=== PATIENT | female | born 1955 | race Caucasian/White ===

== ENCOUNTER 2019-02-16 14:52 | Inpatient (IN) ==
[2019-02-16] MEDS ORDERED: ZOFRAN IV ONE (16:33)
[2019-02-16] MEDS ORDERED: NS 1,000 ML IV ONE ×2 (16:33→16:34)
[2019-02-16] MEDS ORDERED: MORPHINE IV ONE (16:33)
[2019-02-16] MEDS ORDERED: BENADRYL IV ONE (16:34)
[2019-02-16] MEDS ORDERED: REGLAN IV ONE (16:34)
--- NOTE | 2019-02-16 18:02 | PROVIDER DOCUMENTATION ---
This chart was entered by Ly Cloud Scribe, acting as scribe for Zeke Ann MD. HPI-Headache - General Source: patient - History of Present Illness-Headache Headache Location: reports: frontal Quality of Pain: reports: throbbing Severity: reports: moderate Onset/Duration: reports: this afternoon (1200) Timing: reports: still present, improving Any recent trauma/injury?: reports: none Headache severity at the maximum: moderate Headache Exacerbated by:: reports: light Associated Symptoms: reports: nausea, vomiting, other (confusion) Similar Symptoms Previously?: No Recently seen or treated by another doctor?: No <Zeke Ann - Last Filed: 02/16/19 18:25> <Reinaldo Mtz - Last Filed: 02/16/19 22:19> <Nevaeh Rocha - Last Filed: 02/16/19 22:38> - General Chief Complaint: Headache Stated Complaint: headache Time Seen by Provider: 02/16/19 15:56 Allergies/Adverse Reactions: Patient Allergies Allergy/AdvReac Type Severity Reaction Status Date / Time Penicillins Allergy Intermediate HIVES Verified 02/11/18 10:31 Home Medications: Home Medication List Medication Instructions Recorded Confirmed Last Taken Type Duloxetine [Cymbalta] 60 mg PO DAILY 04/25/16 02/16/19 Unknown History Furosemide 60 mg PO PRN PRN 04/25/16 02/16/19 Unknown History Multivitamin [Multi-Vitamin Daily] 1 each PO DAILY 04/25/16 02/16/19 Unknown History Omeprazole [Prilosec] 40 mg PO DAILY 04/25/16 02/16/19 Unknown History ROSUVAstatin [Crestor] 20 mg PO DAILY 04/25/16 02/16/19 Unknown History Trazodone [Desyrel] 100 - 200 mg PO QHS 04/25/16 02/16/19 Unknown History Insulin Glargine [Lantus] 0 units SQ DAILY 08/13/16 02/16/19 Unknown History Ondansetron Odt [Zofran 4 mg Odt] 4 mg PO Q6H PRN PRN #20 tab 02/11/18 02/16/19 Unknown Rx Diltiazem HCl [Diltiazem 24Hr Cd] 120 mg PO QAM 02/16/19 02/16/19 Unknown History Levocetirizine Dihydrochloride 5 mg PO DAILY 02/16/19 02/16/19 Unknown History Pregabalin [Lyrica] 100 mg PO BID 02/16/19 02/16/19 Unknown History - History of Present Illness-Headache Nature of Presenting Problem: Patient is a 63 year old female who presents with headache, nausea, vomiting and confusion. Reports headache started around 1200 today while on the toilet. S tates history of diabetes. (Zeke Ann) Review of Systems - Adult - REVIEW OF SYSTEMS - ADULT Constitutional: reports: no symptoms reported. denies: chills, fever, fatique Eyes: reports: no symptoms reported Ears, Nose, Mouth & Throat: reports: no symptoms reported Cardiovascular: reports: no symptoms reported Respiratory: reports: no symptoms reported Gastrointestinal: reports: see HPI, nausea, vomiting. denies: abdominal pain Genitourinary: reports: no symptoms reported Musculoskeletal: reports: no symptoms reported Integumentary: reports: no symptoms reported Neurological: reports: see HPI, headache/migraines (SOLOMON), other (confusion). denies: dizziness/vertigo, seizure, syncope Psychiatric: reports: no symptoms reported Endocrine: reports: no symptoms reported Hematologic/Lymphatic: reports: no symptoms reported Allergic/Immunologic: reports: no symptoms reported All Other Systems: Reviewed and Negative <Zeke Ann - Last Filed: 02/16/19 18:25> Past History - Adult - PAST MEDICAL HISTORY-ADULT Review of Records: reports: Old Records Reviewed, Nursing Assessment Review, Medications Reviewed, Social history reviewed & non-contributory. Major Childhood Illnesses: reports: denies history Cardiovascular: reports: HTN, hyperlipidemia Respiratory: reports: asthma, other (allergies) Gastrointestinal: reports: GERD Obstetrical/Gynecological: reports: denies history Genitourinary: reports: denies history Musculoskeletal: reports: fibromyalgia Neurological: reports: dementia Psychiatric: reports: bipolar Endocrine/Immune: reports: Diabetes Other Conditions: reports: denies history - PRIOR SURGERIES/PROCEDURES Surgical/Procedure History: reports: appendectomy, , tonsillectomy, ort hopedic (extremity) - IMMUNIZATION STATUS Childhood Immunizations: See Nurse Assessment Flu Vaccine: See Nurse Assessment - FAMILY HISTORY Family History: reviewed, not pertinent - SOCIAL HISTORY Smoking: cigarettes (former) Substance Use: denies <Zeke Ann - Last Filed: 02/16/19 18:25> Physical Exam- Neurological - Physical Exam-Neuro General Appearance: alert, slow to respond, other (actively vomiting. chronically ill appearing). negative: obtunded HENMT: normocephalic/atraumatic, moist mucous membranes. negative: hearing deficit Head Injury: no evidence of injury. negative: active bleeding, ecchymosis, lacerations Respiratory: chest non-tender, lungs clear, normal breath sounds. negative: rhonchi, stridor Cardiovascular: normal peripheral pulses, regular rate, rhythm. negative: tachycardia, systolic murmur Abdominal Exam: normal bowel sounds, non tender, soft. negative: guarding, rebound Extremity: other (2 large skin ulcers to left calf with drainage present. right BKA). 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 negative: facial droop Neurologic: grossly normal, no motor/sensory deficits. negative: aphasia, facial droop Integumentary: other (2 large skin ulcers to left calf with drainage present.). negative: abrasion(s), laceration(s), rash Psych/Mental Status: oriented x 3, other (slow to respond). negative: anxious - Glascow Coma Scale Best Eye Response: (4) open spontaneously Best Verbal Response: (5) oriented Best Motor Response: (6) obeys commands Total Glascow Score: 15 <Zeke Ann - Last Filed: 02/16/19 18:25> Progress - REASSESSMENT Reassessment #1 Time Reassessed: 18:25 Status: unchanged (Patient does not meet TPA criteria as symptoms are not definitely stroke related, and it has been greater than 4.[address] scan results. She is febrile and likely septic) - CHANGE OF SHIFT REPORT (ED Provider) 1 Report Given and Care Transferred to:: Mtz Time of Transfer: 19:00 Items Pending: Labs, XRAY Results, CT/MRI Results, Pain Control <Zeke Ann - Last Filed: 02/16/19 18:25> - PLAN OF CARE/RESULTS Result Diagrams: 02/16/19 19:48 02/16/19 19:48 - CONSULTS/PCP/HOSPITALIST Notification #1 *Consult/PCP/Hospitalist*: [place] Time Discussed: 22:00 Consult Disposition: Will see in ED, Admit <Reinaldo Mtz - Last Filed: 02/16/19 22:19> - PLAN OF CARE/RESULTS Result Diagrams: 02/16/19 19:48 02/16/19 19:48 <Nevaeh Rocha - Last Filed: 02/16/19 22:38> - PLAN OF CARE/RESULTS Progress/Plan/Lab Results: Vital Signs - 8 hr 02/16/19 15:30 02/16/19 15:48 02/16/19 19:45 Temperature 102.7 F H 98.7 F Pulse Rate 102 H 96 H Respiratory Rate 18 18 Blood Pressure 174/80 136/69 O2 Sat by Pulse Oximetry 97 97 95 02/16/19 19:52 02/16/19 20:00 02/16/19 20:10 Temperature Pulse Rate 109 H Respiratory Rate 17 Blood Pressure 198/93 O2 Sat by Pulse Oximetry 96 94 L 95 02/16/19 20:20 02/16/19 20:30 02/16/19 20:40 Temperature Pulse Rate 107 H 106 H 110 H Respiratory Rate Blood Pressure O2 Sat by Pulse Oximetry 95 95 96 02/16/19 20:50 02/16/19 21:00 02/16/19 21:10 Temperature Pulse Rate 109 H 109 H 107 H Respiratory Rate Blood Pressure O2 Sat by Pulse Oximetry 95 95 100 02/16/19 21:19 02/16/19 21:20 02/16/19 21:23 Temperature Pulse Rate 106 H 106 H 106 H Respiratory Rate Blood Pressure 201/79 186/82 O2 Sat by Pulse Oximetry 100 99 100 02/16/19 21:28 02/16/19 21:30 02/16/19 21:33 Temperature Pulse Rate 103 H 103 H 102 H Respiratory Rate Blood Pressure 159/84 186/68 O2 Sat by Pulse Oximetry 97 100 98 02/16/19 19:32 Gram Stain - Final Leg - Left Laboratory Results - last 24 hr 02/16/19 02/16/19 02/16/19 19:48 19:48 19:48 WBC 30.86 H RBC 4.95 Hgb 14.8 Hct 43.9 MCV 88.7 MCH 29.9 MCHC 33.7 RDW Std Deviation 12.9 Plt Count 194 MPV 11.4 H Immature Gran % (Auto) 0.3 Neut % (Auto) 92.9 H Lymph % (Auto) 2.8 L Daniels % (Auto) 3.9 Eos % (Auto) 0.0 Baso % (Auto) 0.1 Immature Gran # (Auto) 0.10 H Neut # (Auto) 28.68 H Lymph # (Auto) 0.85 L Daniels # (Auto) 1.20 H Eos # (Auto) 0.01 Baso # (Auto) 0.02 PT 13.6 INR 0.96 PTT (Actin FS) 22.7 Sodium 139 Potassium 3.9 Chloride 95 L Carbon Dioxide 26 Anion Gap 18 BUN 60 H Creatinine 1.7 H Estimated GFR/1.73 m2 30 BUN/Creatinine Ratio 35 Glucose 202 H Calculated Osmolality 300 Calcium 10.5 H Total Bilirubin 0.48 AST 21 ALT 18 Alkaline Phosphatase 167 H Troponin T Total Protein 8.1 Albumin 4.2 Globulin 3.9 Albumin/Globulin Ratio 1.1 02/16/19 19:48 WBC RBC Hgb Hct MCV MCH MCHC RDW Std Deviation Plt Count MPV Immature Gran % (Auto) Neut % (Auto) Lymph % (Auto) Daniels % (Auto) Eos % (Auto) Baso % (Auto) Immature Gran # (Auto) Neut # (Auto) Lymph # (Auto) Daniels # (Auto) Eos # (Auto) Baso # (Auto) PT INR PTT (Actin FS) Sodium Potassium Chloride Carbon Dioxide Anion Gap BUN Creatinine Estimated GFR/1.73 m2 BUN/Creatinine Ratio Glucose Calculated Osmolality Calcium Total Bilirubin AST ALT Alkaline Phosphatase Troponin T < 0.010 Total Protein Albumin Globulin Albumin/Globulin Ratio Orders Category Date Time Status Cardiac Monitoring DIRECTED Care 02/16/19 16:31 Active Finger Stick Blood Sugar (ED) DIRECTED Care 02/16/19 16:31 Active Oxygen Therapy- ED Nursing DIRECTED Care 02/16/19 16:31 Active CHEST-PORTABLE [RAD] Stat Exams 02/16/19 16:31 Completed CHEST-PORTABLE [RAD] Stat Exams 02/16/19 21:[address] HEAD W/O CONTRAST [CT] Stat Exams 02/16/19 16:31 Completed LOWER LEG-LEFT [RAD] Stat Exams 02/16/19 18:29 Completed BLOOD CULTURE [BLDCUL] Stat Lab 02/16/19 22:08 Received CBC WITH ELECTRONIC DIFF [HEME] Stat Lab 02/16/19 19:48 Completed COMPREHENSIVE METABOLIC PANEL [CHEM] Stat Lab 02/16/19 19:48 Completed LACTATE, PLASMA [CHEM] Stat Lab 02/16/19 21:50 Received PROTIME WITH INR [COAG] Stat Lab 02/16/19 19:48 Completed PTT [COAG] Stat Lab 02/16/19 19:48 Completed TROPONIN T Stat Lab 02/16/19 19:48 Completed URINALYSIS W/POSS RFLX CULT [URINALYSIS] Stat Lab 02/16/19 16:31 Uncollected URINE DRUG SCREEN Stat Lab 02/16/19 16:31 Uncollected WOUND CULTURE INC GRAM STAIN [RM] Routine Lab 02/16/19 19:32 Results 0.9% Sodium Chloride Inj [Ns] 1,000 ml Med 02/16/19 16:33 Discontinued IV 999 mls/hr 0.9% Sodium Chloride Inj [Ns] 1,000 ml Med 02/16/19 16:34 Discontinued IV 999 mls/hr Acetaminophen [Tylenol] Med 02/16/19 18:29 Discontinued 1,000 mg PO NOW ONE Aztreonam [Azactam] 2 gm Med 02/16/19 18:30 Discontinued 0.9% Sodium Chloride Inj [Ns] 100 ml IV NOW Diphenhydramine [Benadryl] Med 02/16/19 16:34 Discontinued 25 mg IV NOW ONE Lidocaine 1% [Xylocaine 1%] Med 02/16/19 20:29 Discontinued 20 ml .ROUTE .STK-MED ONE Lidocaine 1% [Xylocaine 1%] Med 02/16/19 20:37 Discontinued 20 ml INJ NOW ONE Metoclopramide [Reglan] Med 02/16/19 16:34 Discontinued 10 mg IV NOW ONE Morphine Med 02/16/19 21:16 Discontinued 4 mg .ROUTE .STK-MED ONE Morphine Med 02/16/19 16:33 Discontinued 4 mg IV NOW ONE Ondansetron Odt [Zofran Odt] Med 02/16/19 20:34 Discontinued 8 mg .ROUTE .STK-MED ONE Ondansetron Odt [Zofran Odt] Med 02/16/19 20:36 Discontinued 8 mg PO NOW ONE Ondansetron [Zofran] Med 02/16/19 16:33 Discontinued 4 mg IV NOW ONE Vancomycin 1 gm/Ns Med 02/16/19 18:27 Discontinued 1 gm in 250 ml IV NOW EKG [EKG] Stat Ther 02/16/19 16:31 Ordered Procedures - CENTRAL LINE Consent Form Signed?: Yes Time-Out Verification Completed?: Yes Central Line Lumen: triple Catheter: Tunisian: 7 Central Line Procedure Prep: Hand Hygeine Performed, Kit Utilized, Chloraprep, Sterile Body Drape Placed Patient Position (To prevent Air Embolism): Trendelenburg (SC/IJ) Central Line Position: subclavian (R) Ultrasound Guided?: No Hat, mask, sterile gown, & sterile gloves worn by physician?: Yes Site scrubbed vigorously for 30 seconds? (Groin: 2 min): Yes Anesthetic: 1%, Lidocaine/Xylocaine Volume of Anesthetic (ml's): 10 Complications: unable to locate vessel <Reinaldo Mtz - Last Filed: 02/16/19 22:19> Departure <Zeke Ann - Last Filed: 02/16/19 18:25> - Departure Date of Disposition Decision: 02/16/19 Time of Disposition Decision: 19:10 Certified Medical Emergency: Emergent - Critical Care Note This patient required my direct & personal management of CC.: No <Reinaldo Mtz - Last Filed: 02/16/19 22:19> <Nevaeh Rocha - Last Filed: 02/16/19 22:38> - Departure DIAGNOSIS: Sepsis Disposition: ADMITTED INPATIENT 09 Condition: Fair Referrals and Follow-Ups: Debbi Stephens MD [Primary Care Provider] - Attestation - Physician/ ANSHU Attestation The physician spent face to face time with patient:: Yes Advanced Practice Provider documentation review:: Supervising physician onsite and consulted in the evaluation and care of this patient. The physician did have a face to face encounter with the patient. <Zeke Ann - Last Filed: 02/16/19 18:25> - Physician/ ANSHU Attestation Patient care was provided by Advanced Practice Provider:: No The physician spent face to face time with patient:: Yes Advanced Practice Provider documentation review:: Supervising physician onsite and consulted in the evaluation and care of this patient. The physician did have a face to face encounter with the patient. <Reinaldo Mtz - Last Filed: 02/16/19 22:19> Additional Progress <Nevaeh Rocha - Last Filed: 02/16/19 22:38> - ADDITIONAL PLAN OF CARE/RESULTS Additional Progress/Plan/Lab Results: IJ central line placement Consent Form Signed?: Yes Time-Out Verification Completed?: Yes Central Line Lumen: triple Catheter: Tunisian: 7 Central Line Procedure Prep: Hand Hygeine Performed, Kit Utilized, Chloraprep, Sterile Body Drape Placed Patient Position (To prevent Air Embolism): Trendelenburg (IJ) Central Line Position: IJ (R) Ultrasound Guided?: yes Hat, mask, sterile gown, & sterile gloves worn by physician?: Yes Site scrubbed vigorously for 30 seconds? (Groin: 2 min): Yes Anesthetic: 1%, Lidocaine/Xylocaine Volume of Anesthetic (ml's): 6 Complications: none CXR shows IJ placement is in the appropriate area (Nevaeh Rocha) This chart was documented by the indicated scribe, (Ly Cloud, [place]) and accurately reflects the services I performed and decisions made by me, Zeke Ann MD, as attested by the provider's signature.
[2019-02-16] MEDS ORDERED: VANCOMYCIN 1 GM/NS 1 GM/250 ML IVPB IV ONE (18:27)
[2019-02-16] MEDS ORDERED: TYLENOL PO ONE (18:29)
[2019-02-16] MEDS ORDERED: AZACTAM 2 GM in NS 100 ML IV ONE (18:30)
--- NOTE | 2019-02-16 18:35 | Diag Imaging Result Doc PS360 ---
CT HEAD W/O CONTRAST - 02/16/2019 INDICATION: stroke like symptoms COMPARISON: 08/13/2016 FINDINGS: There is a small, stable area of hypodensity in the left frontal lobe deep white matter consistent with chronic microvascular disease. No intracranial mass or hemorrhage. The skull is intact. The sinuses, mastoids, and middle ears are clear. IMPRESSION: No acute disease or change from prior. This exam was performed using automated exposure control, adjustment of mA or kV according to patient size, and/or use of iterative reconstruction technique Electronically signed by Teo Ewing 02/16/2019 6:32 PM
--- NOTE | 2019-02-16 18:41 | Diag Imaging Result Doc PS360 ---
CHEST-PORTABLE - 02/16/2019 INDICATION: stroke like symptoms COMPARISON: 04/16/2018 FINDINGS: Lung volumes are severely low stable from prior exams. Heart size and pulmonary vascularity is grossly normal. No infiltrates or edema. No large pleural effusion. IMPRESSION: Severely low lung volumes but otherwise no acute disease. Electronically signed by Teo Ewing 02/16/2019 6:38 PM
--- NOTE | 2019-02-16 19:35 | Diag Imaging Result Doc PS360 ---
LOWER LEG-LEFT - 02/16/2019 INDICATION: cellulitis TECHNIQUE: Four views COMPARISON: None FINDINGS: There is nonspecific pedal edema. No fractures or bony erosions. There are some phleboliths in the anterior medial lower leg compatible with varicose veins. IMPRESSION: Nonspecific findings. Electronically signed by Teo Ewing 02/16/2019 7:33 PM
[2019-02-16 20:15] LABS: BASO# 0.02 X1000 (0.0-0.2); BASO% 0.1 % (0.0-0.8); EOS# 0.01 X1000 (0.0-0.7); HEMATOCRIT 43.9 % (37.0-47.0); HEMOGLOBIN 14.8 g/dL (12.0-16.0); IMM GRAN% 0.3 % (0.0-0.5); LYMPH# 0.85 X1000 (1.2-3.4); LYMPH% 2.8 % (20.5-51.1); MCH 29.9 PG (27-31); MCHC 33.7 g/dL (33-37); MCV 88.7 FL (81-99); MONO% 3.9 % (1.7-9.3); MPV 11.4 FL (7.4-10.4); NEUT# 28.68 X1000 (1.4-6.5); NEUT% 92.9 % (42.2-75.2); PLT 194 X1000 (130-400); RBC 4.95 XMIL (4.2-5.4); RDW 12.9 % (11.5-14.5); WBC 30.86 X1000 (4.8-10.8)
[2019-02-16 20:16] LABS: INR 0.96; PROTIME 13.6 Seconds (11.0-16.0)
[2019-02-16 20:17] LABS: PTT 22.7 Seconds (22.3-41.8)
[2019-02-16] MEDS ORDERED: XYLOCAINE 1% ONE (20:29)
[2019-02-16] MEDS ORDERED: ZOFRAN ODT ONE (20:34)
[2019-02-16 20:35] LABS: ALB/GLOB RATIO 1.1; ALBUMIN 4.2 g/dL (3.5-5.0); CALCIUM 10.5 mg/dL (8.8-10.2); CREATININE 1.7 mg/dL (0.5-0.9); POTASSIUM 3.9 mmol/L (3.5-5.1); TOTAL BILIRUBIN 0.48 mg/dL (0.20-1.00); TOTAL PROTEIN 8.1 g/dL (6.3-8.3)
[2019-02-16] MEDS ORDERED: ZOFRAN ODT PO ONE (20:36)
[2019-02-16] MEDS ORDERED: XYLOCAINE 1% INJ ONE (20:37)
[2019-02-16] MEDS ORDERED: MORPHINE ONE (21:16)
--- NOTE | 2019-02-16 22:21 | Diag Imaging Result Doc PS360 ---
CHEST-PORTABLE - 02/16/2019 INDICATION: POST IJ PLACEMENT COMPARISON: 6:08 PM FINDINGS: There is a right internal jugular central line in good position with the catheter tip at the cavoatrial junction. Stable severely low lung volumes. There is cardiomegaly and mild pulmonary vascular congestion. IMPRESSION: No complication from line placement. Electronically signed by Teo Ewing 02/16/2019 10:19 PM
[2019-02-16 22:55] LABS: URINE SOURCE CATH
[2019-02-16 23:01] LABS: BILIRUBIN URINE NEGATIVE (NEGATIVE); BLOOD URINE SMALL (NEGATIVE); COLOR YELLOW; GLUCOSE URINE NEGATIVE (NEGATIVE); KETONE URINE NEGATIVE (NEGATIVE); LEUKOCYTES URINE NEGATIVE (NEGATIVE); NITRITE URINE NEGATIVE (NEGATIVE); PH URINE 5.5; PROTEIN URINE 200 mg/dL (NEGATIVE); TURBIDITY URINE HAZY (CLEAR); UROBILINOGEN URINE NORMAL (NORMAL)
[2019-02-16 23:13] LABS: UR EPITHELIAL CELLS >10 /HPF (<10); URINE BACTERIA NEGATIVE /HPF; URINE RBC <10 /HPF (<10); URINE WBC <10 /HPF (<10)
[2019-02-16] MEDS ORDERED: ZYVOX 600 MG/D5W 600 MG/300 ML IVPB IV SCH (23:30)
--- NOTE | 2019-02-16 23:38 | HISTORY AND PHYSICAL ---
CHIEF COMPLAINT: Weakness, cough, shortness of breath. She initially came in with complaints of just not feeling well. She has had a cough reportedly for a few weeks. She has also had rash and swelling in her leg for the last several weeks. She has had headache, nausea, vomiting and confusion. She had a headache today. She has a history of diabetes. She is not frequently admitted. I do not see an H and P on her in a while now. There is no family available. When she initially came in she was confused which she is responsive now without much difficulty. She was pretty hypertensive and triple hypertensive and tachycardic. She has a white count of 30,000. She does look like she has a left lower extremity cellulitis, possibly underlying pneumonia as well and she was admitted as such. There was difficulty establishing IV access which delayed some of her treatment but she had a fever of 103, 102.7 and she still has fever. The patient admitted as such for sepsis presumably due to cellulitis also pneumonia. PAST MEDICAL HISTORY: 1. Type 2 diabetes she is insulin dependent. 2. Bipolar. 3. Dyslipidemia. Questionable if she has arrhythmia. She denies cardiac disease or CHF, but she is on Lasix, Cardizem. 4. She has peripheral neuropathy. She has PVD and status post amputation. PAST SURGICAL HISTORY: 1. 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 2. Appendectomy. 3. . 4. Tonsillectomy, adenoidectomy. ALLERGIES: To penicillins. REVIEW OF SYSTEMS: She admits to poor appetite but no weight loss. Pleuritic chest pain associated with cough as described. No dysuria. She is incontinent. No syncope. No fainting. No bleeding. No hematochezia. No melena. Otherwise negative times a 10 point review of systems. Currently her blood pressure is 156/60, heart rate of 91, respiratory 18, temperature was 101 degrees with a T-max of 102.7 degreesGeneral: Well-developed female in no acute distress. HEENT: Head was normocephalic atraumatic. Pupils equal, round, reactive to light. Extraocular movements were intact. She had moist mucous membranes. Neck: Was supple Cardiovascular: Was regular rate and rhythm. No murmurs, gallops, or rubs. GI: Was soft, nontender, nondistended. Bowel sounds are positive. Pulmonary: She had faint rales at the bases. Extremities: She had no edema in her right leg. Her amputation site looked intact. Her left leg she had erythema from her ankle in a circumscribed line all the way up to her anterior pineda and then she kind had a speckling macular papular rash extending up her inner thigh. Not clear lymphangitis spread. She had a large area of denudation of the skin along her left leg consistent with either foot ulcer or just a superficial blister that may have ruptured. Neurological: Was nonfocal. Musculoskeletal: Was about 4 to 5 in all 4 extremities. LABORATORY DATA: White count of 30.8, about 10 days ago it was normal. BUN and creatinine are 60 and 1.7 which is above baseline. She is usually about 1.5 to 1.6. She has been as high as 3.7. Her calcium is up a little bit but that may be from dehydration. Alkaline phosphatase is 167, her lactate is normal. Urine did not look particularly infected and had a lot of squames in it. Chest x-ray I think was read as low lung volumes, cardiomegaly, mild pulmonary hypertension. ASSESSMENT: This is a 63-year-old female with history of diabetes, peripheral vascular disease who presents with sepsis presumably associated with left lower extremity cellulitis, possibly some underlying pneumonia as well. 1. Sepsis. We will hydrate and follow. She seems to be intravascularly depleted but she does have peripheral edema. We will continue empiric antibiotics, vancomycin, aztreonam based on her risk factors. Consider getting an ID consult when available. 2. Cellulitis. Will continue empiric antibiotics. I will get a venous Doppler just to make sure there is no DVT. Will get a surgical opinion for wound care although I do not think she is going to need any debridement or anything at this point. 3. Possible pneumonia. We will continue treatment. Check a procalcitonin level. Repeat chest x- ray tomorrow and follow. 4. Hypertension which is still uncontrolled. We will adjust medications and monitor. 5. Acute on chronic renal failure. Check urine electrolytes and follow, get a renal ultrasound but she has some baseline renal insufficiency and we will continue IV fluids and monitor. 6. Diabetes. Follow her blood sugars. Check an A1c. Continue sliding scale insulin and follow closely. DISPOSITION: Pending her clinical status. Will observe her in step-down and if she is stable likely go to the floor next 24 hours. cc: Debbi Stephens MD
[2019-02-16 23:42] LABS: UR AMPHETAMINES QUAL NONE DETECTED (NONE DETECT); UR BARBITUATES QUAL NONE DETECTED (NONE DETECT); UR BENZODIAZEPIN QUAL NONE DETECTED (NONE DETECT); UR CANNABINOIDS QUAL NONE DETECTED (NONE DETECT); UR COCAINE QUAL NONE DETECTED (NONE DETECT); UR METHADONE QUAL NONE DETECTED (NONE DETECT); UR OPIATES QUAL PRESUMPTIVE POSITIVE (NONE DETECT); UR OXYCODONE QUAL NONE DETECTED (NONE DETECT); UR PCP QUAL NONE DETECTED (NONE DETECT)
[2019-02-17] MEDS ORDERED: ZOFRAN IV PRN (00:28)
[2019-02-17] MEDS: HEPARIN SUBQ SCH ×2 (01:32→12:20)
[2019-02-17] MEDS: NS 1,000 ML IV SCH ×2 (01:32→09:39)
[2019-02-17] MEDS: AZACTAM 1 GM in NS 50 ML IV SCH ×3 (02:21→17:02)
[2019-02-17] MEDS: TYLENOL PO PRN ×3 (02:21→16:18)
[2019-02-17 06:04] LABS: BASO# 0.01 X1000 (0.0-0.2); HEMATOCRIT 35.4 % (37.0-47.0); HEMOGLOBIN 11.5 g/dL (12.0-16.0); IMM GRAN# 0.07 X1000 (0.0-0.04); IMM GRAN% 0.3 % (0.0-0.5); LYMPH% 2.9 % (20.5-51.1); MCH 29.4 PG (27-31); MCHC 32.5 g/dL (33-37); MCV 90.5 FL (81-99); MONO% 2.9 % (1.7-9.3); MPV 11.7 FL (7.4-10.4); NEUT# 22.78 X1000 (1.4-6.5); NEUT% 93.9 % (42.2-75.2); PLT 157 X1000 (130-400); RBC 3.91 XMIL (4.2-5.4); RDW 12.8 % (11.5-14.5); WBC 24.26 X1000 (4.8-10.8)
[2019-02-17] MEDS: PRILOSEC PO SCH (06:11)
[2019-02-17] MEDS: HUMALOG SUBQ SCH ×7 (06:12→21:51)
[2019-02-17 06:56] LABS: BANDS 14 % (0-1); MONO 1 % (1-9); SEGS 85 % (42-75)
[2019-02-17 06:59] LABS: ALB/GLOB RATIO 0.7; ALBUMIN 2.6 g/dL (3.5-5.0); CALCIUM 7.7 mg/dL (8.8-10.2); CREATININE 1.7 mg/dL (0.5-0.9); POTASSIUM 3.8 mmol/L (3.5-5.1); TOTAL BILIRUBIN 0.42 mg/dL (0.20-1.00); TOTAL PROTEIN 6.5 g/dL (6.3-8.3)
--- NOTE | 2019-02-17 07:29 | Diag Imaging Result Doc PS360 ---
EXAM: CHEST-PORTABLE 02/17/2019 HISTORY: dyspnea TECHNIQUE: AP portable at 0626 COMMENT: There is a right internal jugular central venous catheter with its tip in the right atrium. The lungs are not as well-expanded as on 02/16/2019 but are clearer in appearance. IMPRESSION: No evidence of acute disease. Electronically signed by David Jerry 02/17/2019 7:27 AM
[2019-02-17] MEDS ORDERED: CRESTOR PO SCH (09:00)
[2019-02-17] MEDS ORDERED: CYMBALTA PO SCH ×2 (09:00→21:00)
[2019-02-17] MEDS: LANTUS INSULIN SUBQ SCH (09:40)
[2019-02-17] MEDS: CARDIZEM CD PO SCH (09:40)
[2019-02-17] MEDS: ZYRTEC PO SCH (09:40)
[2019-02-17] MEDS: THERA M PLUS PO SCH (09:40)
[2019-02-17] MEDS: LYRICA PO SCH ×2 (09:40→21:45)
--- NOTE | 2019-02-17 09:59 | PROGRESS NOTE ---
DATE: 02/17/2019 SUBJECTIVE: This morning, Ms. French refers to be feeling a whole lot better. She got admitted yesterday because of generalized weakness, fever, chills, and confusion, was found to be septic as a result of left leg severe cellulitis. OBJECTIVELY: Current Vital signs: Blood pressure is 131/50, pulse of 72, respiration is 18, temperature 98.3 degrees. The patient is saturating 100% on nasal cannula. General: Ms. French is a 63-year-old female. She is in bed, no distress. HEENT: Mucosa is pink and moist. Anicteric. Acyanotic. Neck: Supple. Chest: Good air entry bilateral. There are no crepitations, no rhonchi. Cardiovascular: Regular rate and rhythm. Abdomen: Soft, distended, but nontender. Bowel sounds present. Extremities: There is a right BKA. The left has massive erythematous changes in the entire foot circumferentially, and there is a lateral area of denudation which is exuding some purulence. LABORATORY DATA: WBCs 24.26, hemoglobin is 11.5, platelet count of 157,000. Chemistry: Sodium is 135, potassium is 3.8, chloride 98, bicarb is 24. The patient's BUN is 60, creatinine is 1.7 which is not new in the patient. CURRENT MEDICATIONS: Have all been reviewed. IMAGING: A chest x-ray on presentation did show severely low lung volumes but otherwise no pathology. ASSESSMENT: 1. Sepsis on presentation secondary to skin and soft tissue infection. 2. Left lower extremity cellulitis with some exudation. 3. Chronic kidney disease stage 4. The patient continues to make urine. We are going to continue to avoid any nephrotoxin and dose all medication renally. 4. Diabetes mellitus. 5. Status post left right [id number] amputation noted. 6. Suspected underlying stasis dermatitis on the left leg. PLAN: In general, Ms. French's vitals are a lot better. She is no more febrile. Blood pressure and pulse are within normal range. The stain from the left leg is showing gram- positive cocci. The patient has severe allergies to penicillin so she is being covered with linezolid and aztreonam. We will wait for the microbiology data and modify the antibiotics accordingly. cc: Deni Reyes MD Addendum: Patient blood culture is positive for GPC. I have switched GP coverage to Daptomycin due to bacteremia. Discontinue Zyvox. Await ID and sensitivity. GHADA
[2019-02-17] MEDS ORDERED: CUBICIN 500 MG in NS 100 ML IV SCH (10:00)
--- NOTE | 2019-02-17 10:52 | Diag Imaging Result Doc PS360 ---
EXAM: US ABDOMEN-COMPLETE 02/17/2019 HISTORY: renal failure TECHNIQUE: Abdominal ultrasound COMMENT: The portions of the head of the pancreas which are visible are unremarkable. The remainder is obscured. Very poor detail is seen in the liver. There is antegrade flow in the portal vein. The gallbladder appears to be clear and is nontender. There is antegrade flow in the portal vein. The common bile duct measures less than 6 mm. The spleen is not enlarged. The right kidney is without evidence of hydronephrosis or mass. The left kidney is not well demonstrated. Neither the aorta are normally inferior vena cava is demonstrated. The study was markedly suboptimal due to the patient's body habitus and recent breakfast. IMPRESSION: Suboptimal study. No definite evidence of acute disease. Electronically signed by David Jerry 02/17/2019 10:49 AM
--- NOTE | 2019-02-17 11:18 | PROGRESS NOTE ---
DATE: 02/17/2019 SUBJECTIVE: Ms. Niharika French is a 63-year-old, overweight white female diabetic, who has a right gplyw-vmo-qmka amputation, and she was admitted through our emergency department with cellulitis involving her left lower extremity. We were asked to evaluate her because of the cellulitis. She also has an open wound which is superficial lateral aspect of the left leg. She has a history of vascular surgery by Dr. Milan in [place], and I think she has also had vein surgery in [place]. She has been admitted for IV antibiotics and local wound care, left lower extremity. PAST MEDICAL HISTORY: Type 2 diabetes, bipolar dyslipidemia, peripheral neuropathy. PAST SURGICAL HISTORY: Ohiha-dhk-ooon amputation right leg, appendectomy, , tonsillectomy and vascular surgery as described above. ALLERGIES: No known drug allergies. MEDICINES: Per the chart. REVIEW OF SYSTEMS: Review of systems was reviewed, and was essentially negative, except for the history of present illness. FAMILY HISTORY: Noncontributory. PHYSICAL EXAMINATION: General: On exam, Ms. Niharika French is an overweight middle aged white female, who is in no acute distress. She is awake and cooperative. She has a well-healed right qybpy-sfh-huhv amputation. She had swelling and cellulitis involving her left lower extremity. She had a superficial ulcer proximal lateral left leg which is draining fluid, but there is no undrained purulence involving her left lower extremity. Heart: Has regular rate. LUNGS: Clear. Abdomen: Mostly soft without tenderness. Extremities: She has palpable femoral pulses. PLAN: I agree with elevation of the left lower extremity and IV antibiotics and local wound care per our wound care nurse. cc: Divya Crawford MD
--- NOTE | 2019-02-17 15:10 | Extremity Venous Study ---
PROCEDURE NAME: Venous U/S Left Leg - 02/16/2019 PROCEDURE PERFORMED: Left lower extremity venous duplex and color flow imaging study using the GE Vivid E9 ultrasound System with a 9L-D transducer. REFERRING PHYSICIANS: Dr. Sierra. PATIENT IDENTIFICATION: A 63-year-old female. SOLAR INSTALLATION SUPERVISOR: Juan Carlos Doyle RVT. INDICATION: Cellulitis, left lower extremity. FINDINGS: This is a limited study secondary to the patient's obesity and tender left lower extremity. All that was imaged was the popliteal vein and there was no evidence of thrombus within the popliteal vein. cc: MD Stan Espino MD
[2019-02-17] MEDS: CRESTOR PO SCH (21:45)
[2019-02-17] MEDS: DESYREL PO SCH (21:45)
[2019-02-18] MEDS: HEPARIN SUBQ SCH ×3 (00:58→23:18)
[2019-02-18] MEDS: AZACTAM 1 GM in NS 50 ML IV SCH (01:00)
[2019-02-18] MEDS: TYLENOL PO PRN (01:27)
[2019-02-18] MEDS: HUMALOG SUBQ SCH ×6 (06:22→20:31)
[2019-02-18] MEDS: PRILOSEC PO SCH (06:23)
[2019-02-18 06:30] LABS: BASO# 0.02 X1000 (0.0-0.2); BASO% 0.2 % (0.0-0.8); EOS# 0.11 X1000 (0.0-0.7); EOS% 0.9 % (0.0-10.0); HEMATOCRIT 33.4 % (37.0-47.0); HEMOGLOBIN 10.6 g/dL (12.0-16.0); IMM GRAN# 0.07 X1000 (0.0-0.04); IMM GRAN% 0.6 % (0.0-0.5); LYMPH# 1.13 X1000 (1.2-3.4); LYMPH% 9.1 % (20.5-51.1); MCHC 31.7 g/dL (33-37); MCV 91.3 FL (81-99); MONO# 0.63 X1000 (0.11-0.59); MONO% 5.1 % (1.7-9.3); NEUT# 10.51 X1000 (1.4-6.5); NEUT% 84.1 % (42.2-75.2); PLT 128 X1000 (130-400); RBC 3.66 XMIL (4.2-5.4); RDW 12.7 % (11.5-14.5); WBC 12.47 X1000 (4.8-10.8)
[2019-02-18 07:04] LABS: CALCIUM 7.9 mg/dL (8.8-10.2); POTASSIUM 3.4 mmol/L (3.5-5.1)
--- NOTE | 2019-02-18 09:14 | PROGRESS NOTE ---
DATE: 02/18/2019 Niharika Gibsons left lower extremity cellulitis looks the same but her white count has improved on IV antibiotics from 24 to 12. Her heart rate is 72, blood pressure 164/58, O2 saturation 100%. She is afebrile. PLAN: Continue IV antibiotics and local wound care, elevation of her left lower extremity. cc: Divya Crawford MD
[2019-02-18] MEDS: CARDIZEM CD PO SCH (09:53)
[2019-02-18] MEDS: LANTUS INSULIN SUBQ SCH (09:53)
[2019-02-18] MEDS: ZYRTEC PO SCH (09:53)
[2019-02-18] MEDS: LYRICA PO SCH ×2 (09:53→20:31)
[2019-02-18] MEDS: KEFZOL 1 GM/D5W 1 GM/50 ML IVPB IV SCH ×2 (09:54→16:31)
[2019-02-18] MEDS: THERA M PLUS PO SCH (09:54)
--- NOTE | 2019-02-18 09:56 | INFECTIOUS DISEASE CONSULT REP ---
DATE: 02/18/2019 CONCLUSION: The patient has streptococcal bacteremia originating from streptococcal left leg cellulitis. Also from the leg, a Staph has been isolated. MEDICATIONS: The patient currently is on a combination of daptomycin and aztreonam. RECOMMENDATION: I stopped daptomycin and aztreonam and started the patient on Ancef the dose of which is altered because of the patient's renal failure. I also ordered the nurse to watch the patient during the first dose of Ancef. DISCUSSION: The patient, approximately a week ago, started having fever and erythema of her left lower extremity associated with pain and swelling of the leg. Blood cultures are growing a Streptococcus, which may well be group A strep. Culture taken from the leg is also growing the same strep, and also there may be a Staphylococcus that has been isolated from the patient's leg as well. The patient does have an allergy to penicillin manifested by hives. This occurred 50 years ago when the patient was 13 years old, and since then, the patient has had Keflex and tolerated it well. Because the penicillin allergy was present so many years ago, there is a good chance that the patient is not really allergic to penicillin, but had a reaction to one of the impurities that penicillin had when it was being manufactured many years ago. In addition, she has tolerated Keflex well, and therefore cefazolin, which is a cephalosporin antibiotic like Keflex, should be tolerated also well. I have requested that the nurse watch the patient during the first dose. She does not have any nausea, vomiting, diarrhea, or dysuria. The patient's CBC originally was 30,860, and today the white cell count is down to 12,470, hemoglobin 10.6, and platelet count 128,000. Creatinine is 2.0. GFR is 25. Urinalysis showed no white cells or bacteria. Blood cultures are growing a strep that may be a group A strep. The patient's leg is also growing that same strep, and also there is a Staphylococcus that has been isolated as well. Chest x-ray shows no acute disease. The patient's chest x-ray shows no acute disease. The patient's x-ray of her left leg shows varicose veins. HUSBANDRY TECHNICIAN HISTORY: She is a 3, para 2, AB 1. She delivered both of her children by section. She has had a tubal ligation. REVIEW OF SYSTEMS: Eyes and Ears: Her hearing and vision are okay. Neck: No stiffness. Respiratory: No cough or dyspnea. GI: No nausea, vomiting, or diarrhea. : No dysuria or flank pain. Bones/Joints/Muscles: See present illness. Neurologic: The patient does not have seizures. She does have neuropathy manifested by decreased sensation in her left foot. PREVIOUS HOSPITALIZATIONS AND OPERATIONS: The patient has had a right zcjkl-jup-dfub amputation, an appendectomy, tonsillectomy, surgery on her right wrist, and laminectomy. ALLERGIES: The patient is allergic to penicillin, but as I mentioned earlier, this happened 50 years ago and it may well be that she was allergic to an impurity that early formulations of penicillin had. She has also had Keflex and tolerated it well. MEDICAL DISEASES: Positive for obesity, diabetes mellitus, hypertension, hyperlipidemia, fibromyalgia, and neuropathy involving the left foot. INFECTIOUS DISEASE HISTORY: Positive for pneumonia and UTI. FAMILY HISTORY: Positive for diabetes mellitus, cancer, hypertension, myocardial infarction, and stroke. SOCIAL HISTORY: [place] . She lives with two people from her family. She has a dog as a pet. She is disabled. She does not smoke cigarettes, drink alcoholic beverages, or abuse drugs. HOME MEDICATIONS: Include the following: Diltiazem, Cymbalta, Flonase, furosemide, Atarax, indapamide, insulin, levocetirizine. She also is on Prilosec, Zofran, multivitamin, Lyrica, Crestor, and Desyrel. PHYSICAL EXAMINATION: Vital Signs: Temperature is 98 degrees, pulse 72, respirations 18, blood pressure is 164/58. The patient weighs 292 pounds. General: This is an obese, middle-aged female. She is in no acute distress. HEENT: She can hear my spoken words and see near objects. She does not have any white coating on her tongue. Neck: No meningismus. Lungs: Clear to auscultation. Cardiovascular: Heart rate is regular. Abdomen: Soft and nontender. Extremities: The patient has a right cjobj-jev-nvwl amputation. The incision site is well healed. The patient's left leg is erythematous and swollen. There was a large bulla, but this was opened, and the wound that the bulla had is erythematous with a slightly serous discharge. Neurologic: The patient is alert. She can move her extremities. There is no tremor. She had decreased sensation on the bottom of her left foot. Her memory as regarding her medical history was intact. Thank you for the consult. cc: Tyler Freedman MD [facility]
--- NOTE | 2019-02-18 10:46 | INFECTIOUS DISEASE CONSULT REP ---
DATE: 02/18/2019 ADDENDUM: The patient's leg culture is growing methicillin-resistant Staph aureus. The blood cultures are only growing group A strep. The leg culture also may well be growing group A strep. To treat the patient's methicillin-resistant Staph aureus in her leg, I have placed the patient on Zyvox. I have discontinued Cymbalta because it can interact with Zyvox. I asked the patient if she would mind that I stop Cymbalta while she is taking Zyvox for her leg infection and she said that was fine, she would not have to take Cymbalta while she is taking Zyvox. cc: Tyler Freedman MD MTDD
[2019-02-18] MEDS: ZYVOX PO SCH ×2 (12:26→23:18)
--- NOTE | 2019-02-18 13:04 | PROGRESS NOTE ---
DATE: 02/18/2019 SUBJECTIVE: This morning Ms. Malone refers to be feeling fairly okay. No new complaints. OBJECTIVE: Vital signs: Blood pressure is 156/46, pulse of 75, respirations 18, temperature 99.9 degrees. General: Ms. Malone 63-year-old female. She is in bed no distress. Mucosa is pink and moist. Anicteric. Acyanotic. Neck: Supple. Chest: Good air entry bilateral. There was no crepitations no rhonchi. There is a right central IJ catheter in place. Cardiovascular: Regular rate and rhythm. Abdomen: Soft, nontender. Bowel sounds present. There is no hepatosplenomegaly. Extremities: There is a right BKA the left has minimal swelling of the of the leg with erythematous changes. The lateral aspect of the leg has an area of denudation which is exuding some purulence. It has been covered. DIRECTOR OF SALES SUPPORT: Patient is awake, alert, and oriented. LABORATORY DATA: WBC is down to 12.47, hemoglobin is 10.6, platelet count of 128. Chemistry is also reviewed. Creatinine has gone up slightly to 2.0. Microbiology data: The wound culture is growing Gram is growing an Methicillin resistant staphylococcus aureus. There is also another gram-positive cocci which is yet to be determined. The blood culture 2 out of 2 is growing g gram-positive cocci. From the ID report, it appears this is a strep. We are still waiting for the official ID and sensitivity. ASSESSMENT: 1. Sepsis on presentation secondary to skin and soft tissue infection. 2. Left lower extremity cellulitis with sore left lower extremity with Methicillin resistant staphylococcus aureus wound infection associated with cellulitis. 3. Chronic kidney disease stage 4. 4. Diabetes mellitus we will continue with insulin regimen. 5. Status post right qiwdi-ubvm-iquhnoilya. 6. Gram-positive cocci bacteremia. We are still waiting for the infectious disease and sensitivity. However, from Dr. Freedman note it appears that is streptococcal. In general Ms. malone is doing a lot better. White cell count is trending down. ID has been consulted. Antibiotics have been changed to cefazolin and Zyvox. cc: Deni Reyes MD
[2019-02-18] MEDS: NORCO-5 PO PRN ×2 (13:37→23:18)
[2019-02-18] MEDS: DESYREL PO SCH (20:31)
[2019-02-18] MEDS: CRESTOR PO SCH (20:31)
[2019-02-19] MEDS: KEFZOL 1 GM/D5W 1 GM/50 ML IVPB IV SCH ×3 (02:11→17:36)
[2019-02-19 05:32] LABS: BASO# 0.02 X1000 (0.0-0.2); BASO% 0.2 % (0.0-0.8); EOS# 0.34 X1000 (0.0-0.7); EOS% 3.9 % (0.0-10.0); HEMATOCRIT 31.9 % (37.0-47.0); HEMOGLOBIN 10.3 g/dL (12.0-16.0); IMM GRAN# 0.07 X1000 (0.0-0.04); IMM GRAN% 0.8 % (0.0-0.5); LYMPH# 1.67 X1000 (1.2-3.4); LYMPH% 19.3 % (20.5-51.1); MCH 29.3 PG (27-31); MCHC 32.3 g/dL (33-37); MCV 90.9 FL (81-99); MONO# 0.69 X1000 (0.11-0.59); MPV 12.1 FL (7.4-10.4); NEUT# 5.86 X1000 (1.4-6.5); NEUT% 67.8 % (42.2-75.2); PLT 134 X1000 (130-400); RBC 3.51 XMIL (4.2-5.4); RDW 12.6 % (11.5-14.5); WBC 8.65 X1000 (4.8-10.8)
[2019-02-19 06:08] LABS: CALCIUM 8.5 mg/dL (8.8-10.2); CREATININE 1.9 mg/dL (0.5-0.9); POTASSIUM 3.8 mmol/L (3.5-5.1)
[2019-02-19] MEDS: HUMALOG SUBQ SCH ×7 (06:16→22:04)
[2019-02-19] MEDS: PRILOSEC PO SCH (06:16)
--- NOTE | 2019-02-19 07:06 | INFECTIOUS DISEASE PROGRESS NO ---
DATE: 02/19/2019 PRESENT ILLNESS: The patient has a group A strep leg cellulitis and an associated bacteremia. The patient's leg is also growing methicillin-resistant Staph aureus. MEDICATIONS: The patient is receiving a combination of IV Ancef and p.o. Zyvox. The Ancef dose has been modified because of the patient's renal failure. PHYSICAL EXAMINATION: Vital Signs: Temperature is 98.9 degrees, pulse 70, respirations 23, blood pressure 135/51. General: This is an obese, middle-aged female. She is in no acute distress. HEENT: She can hear my spoken words and see near objects. She does not have any white patches in her mouth. Neck: She has a right-sided jugular vein catheter in place. The patient is able to move her neck or head and not have any neck pain. Lungs: Clear to auscultation. Cardiovascular: Heart rate is regular. Abdomen: Soft and nontender. Extremities: The patient's left leg is slightly less swollen, but it still remains erythematous. The right leg has a bkkny-srj-watb amputation. The incision is well healed on that leg, and the leg is not erythematous today. Neurologic: The patient is arousable. She can move her extremities. There is no tremor. She is able to carry on a conversation. LABORATORY DATA: The patient's CBC today shows a white count of 8650, hemoglobin 10.3, and platelet count 134,000. A BMP has been ordered, but the results are pending. ASSESSMENT AND PLAN: As mentioned above, the patient has group A streptococcus in her blood and on her left leg, and also on the left leg, methicillin-resistant Staphylococcus aureus has been isolated. My plan is to continue Ancef and Zyvox. Day 1 of treatment for the patient's streptococcus bacteremia will be the first day that the patient's repeat blood cultures are sterile. I am going to order for blood cultures to be drawn tomorrow morning. COMORBIDITIES: The patient is obese and has chronic edema in her left leg, which unfortunately predisposes to it getting cellulitis. The patient also has diabetes mellitus and neuropathy involving the left foot. The patient also has fibromyalgia. cc: Tyler Freedman MD
--- NOTE | 2019-02-19 07:50 | EKG Report ---
Test Performed on : 02/16/2019 11:25:03 PM Test Reason : Stroke like symptoms Blood Pressure : / mmHG Vent. Rate : 092 BPM Atrial Rate : 092 BPM P-R Int : 212 ms QRS Dur : 094 ms QT Int : 368 ms P-R-T Axes : 071 001 019 degrees QTc Int : 455 ms Sinus rhythm. with 1st degree AV block. Otherwise normal ECG When compared with ECG of 13-AUG-2016 15:44, T wave amplitude has decreased in Anterior leads Nonspecific T wave abnormality no longer evident in Lateral leads Unconfirmed Result
[2019-02-19] MEDS ORDERED: LANTUS INSULIN SUBQ SCH (09:00)
[2019-02-19] MEDS: LYRICA PO SCH ×2 (10:11→21:54)
[2019-02-19] MEDS: THERA M PLUS PO SCH (10:11)
[2019-02-19] MEDS: CARDIZEM CD PO SCH (10:11)
[2019-02-19] MEDS: ZYRTEC PO SCH (10:11)
[2019-02-19] MEDS: LASIX PO SCH ×2 (10:25→21:54)
[2019-02-19] MEDS: ZYVOX PO SCH ×2 (10:57→21:54)
--- NOTE | 2019-02-19 12:35 | PROGRESS NOTE ---
DATE: 02/19/2019 SUBJECTIVE: This morning, Ms. French refers to be doing much better. Still has some pains in the left foot. She also complains that she is getting more swollen. Her Lasix has been withheld. OBJECTIVE: Vital Signs: Blood pressure is 175/58, pulse of 75, respirations are 14, temperature is 98.1 degrees. General Examination: Ms. French is a 63-year-old, female. She is in bed. No distress. HEENT: Mucosa is pink and moist. Anicteric. Acyanotic. Neck: Supple. Chest: Good air entry bilaterally. There are no crepitations, no rhonchi. Cardiovascular: Regular rate and rhythm. No murmurs, no rubs, no gallops. Abdomen: Soft. It is distended but nontender. Bowel sounds are present. Extremities: There is a right BKA. The left continues to be swollen. It is extremely erythematous in the leg. There is also a spread of the redness into the medial aspect of her thigh. She has fluid of about 3+, pedal edema, even edema on the lateral aspect of the abdominal wall. SPINNER HAND: The patient is awake, alert, and oriented. Laboratory Data: WBC has normalized at 8.65, hemoglobin is 10.3, platelet count of 134,000. Chemistry is also reviewed. Creatinine is 1.9 which seems to be baseline. Microbiology data shows blood cultures positive for Streptococcus pyogenes. The leg shows both Streptococcus pyogenes and MRSA. ASSESSMENT: 1. Sepsis on presentation secondary to skin and soft tissue infection complicated with Streptococcus pyogenes wound infection and bacteremia. 2. Left lower extremity wound infection with surrounding cellulitis. Culture is positive for both Streptococcus pyogenes and methicillin-resistant Staphylococcus aureus. The patient is on adequate antimicrobial coverage. 3. Chronic kidney disease stage 4, noted. 4. Diabetes mellitus. We will continue with insulin regimen. Glucose is better controlled. 5. Status post right below knee amputation. 6. Streptococcus pyogenes bacteremia. Patient is on intravenous antibiotics. Infectious disease is on board. 7. Fluid overload. We will start the patient back on her home diuretic therapy. We will also continue strict intakes and outputs. cc: Deni Reyes MD
[2019-02-19] MEDS: HEPARIN SUBQ SCH (12:54)
[2019-02-19] MEDS: TYLENOL PO PRN (14:05)
--- NOTE | 2019-02-19 15:17 | PROGRESS NOTE ---
DATE: 02/19/2019 INDICATIONS: Ms Niharika French is a 63-year-old white female status post right hfyoh-zbr-rkpy amputation. She has developed cellulitis and swelling involving her left lower extremity and she has been on IV antibiotics with elevation of her left leg. On exam I felt there was no undrained purulence. She does have an open wound involving the proximal lateral left leg which is draining fluid. Today it seems like she has some cellulitis involving the inner left thigh in addition to her left leg. Her white blood cell count went from 12.5 to 8.5. PLAN: Continue IV antibiotics via a right internal jugular central venous line. Elevation of her legs. She is also on diuretics to control her edema. cc: Divya Crawford MD
[2019-02-19] MEDS: CRESTOR PO SCH (21:54)
[2019-02-19] MEDS: DESYREL PO SCH (21:54)
[2019-02-19] MEDS: NORCO-5 PO PRN (22:05)
[2019-02-20] MEDS: KEFZOL 1 GM/D5W 1 GM/50 ML IVPB IV SCH (00:40)
[2019-02-20] MEDS: HEPARIN SUBQ SCH ×3 (00:40→23:47)
[2019-02-20] MEDS: DOXYCYCLINE PO SCH ×2 (06:21→21:22)
[2019-02-20] MEDS: HUMALOG SUBQ SCH ×7 (06:21→21:23)
[2019-02-20] MEDS: PRILOSEC PO SCH (06:21)
[2019-02-20] MEDS: THERA M PLUS PO SCH (08:45)
[2019-02-20] MEDS: LASIX PO SCH ×2 (08:45→21:22)
[2019-02-20] MEDS: ROCEPHIN 2 GM in NS 50 ML IV SCH ×2 (08:45→19:47)
[2019-02-20] MEDS: LYRICA PO SCH ×2 (08:45→21:19)
[2019-02-20] MEDS: CARDIZEM CD PO SCH (08:46)
[2019-02-20] MEDS: ZYRTEC PO SCH (08:46)
[2019-02-20] MEDS ORDERED: LANTUS INSULIN SUBQ SCH (09:00)
--- NOTE | 2019-02-20 09:29 | INFECTIOUS DISEASE PROGRESS NO ---
DATE: 02/20/2019 PRESENT ILLNESS: The patient has a group A strep leg cellulitis and associated bacteremia. The patient's leg also is growing methicillin-resistant Staph aureus. MEDICATIONS: Currently, the patient is on IV Ancef and p.o. Zyvox. PHYSICAL EXAMINATION: Vital Signs: Temperature is 99 degrees, pulse 65, respirations 19, blood pressure 131/53. General: This is an obese, ill-appearing middle-aged female. She is in no acute distress. She is a little lethargic this morning. Head/eyes/ears/nose/throat: She can hear my spoken words and see near objects. She does not have any white coating on her tongue. Neck: The patient has a right-sided jugular vein catheter in place. The site is not erythematous or purulent. The patient can move her neck without having any neck pain. Lungs: Clear to auscultation. Cardiovascular: Heart rate is regular. Abdomen: Soft and nontender. Extremities: The patient's left leg remains erythematous. I think it is slightly less swollen, however. Neurologic: As mentioned above, the patient was a little lethargic this morning. She can move her extremities. There is no tremor. LAB AND X-RAY: CBC shows a white count of 8650, hemoglobin 10.3, platelet count 134,000, creatinine is 1.9, GFR is 27. There is no new radiographic study. ASSESSMENT AND PLAN: The patient has a group A streptococcal bacteremia and leg infection. She also has methicillin-resistant Staph aureus infection of the of the left leg. My plan is to switch the patient from Ancef and Zyvox to Rocephin and doxycycline. COMORBIDITIES: In this patient include obesity, chronic left leg edema, diabetes mellitus, neuropathy involving the left foot, and fibromyalgia. cc: Tyler Freedman MD
--- NOTE | 2019-02-20 10:19 | PROGRESS NOTE ---
DATE: 02/20/2019 Ms. French is receiving IV antibiotics for cellulitis involving her left lower extremity. She has had cultures positive for strep and staph. She is on multiple IV antibiotics. Today, she seems to have less pain involving her left lower extremity. She still had some cellulitis involving her left leg and inner left thigh. She has less swelling. There is no evidence of undrained purulence on exam. We will continue elevation of her leg and IV antibiotics. cc: Divya Crawford MD
--- NOTE | 2019-02-20 10:43 | PROGRESS NOTE ---
DATE: 02/20/2019 SUBJECTIVE: This morning, Ms. French refers to be feeling a little better. Still some discomfort in the left leg, but she thinks the swelling is getting better. OBJECTIVE: Vital Signs: Blood pressure is 148/58, pulse of 64, respirations 13, temperature is 97.9 degrees, the patient is saturating 100%. General: Ms. French is a 63-year-old female. She is in bed. She is not in any cardiopulmonary distress. HEENT: Mucosa is pink and moist. Anicteric. Acyanotic. Neck: Supple. Chest: Good air entry bilaterally. Few crackles posteriorly. Cardiovascular: Regular rate and rhythm. Abdomen: Soft, distended. Extremities: There is a right BKA. The left continues to be minimally swollen with erythematous changes in the leg spreading medially in the thigh. There is also fluid on the lateral aspect of the abdominal wall and the upper thighs. HEALTH PSYCHOLOGIST: The patient is awake, alert, and oriented. LABORATORY DATA: Glucose this morning was 204. ASSESSMENT: 1. Sepsis secondary to skin and soft tissue infection. 2. Streptococcus pyogenes bacteremia secondary to left lower extremity cellulitis. 3. Left lower extremity wound infection with surrounding cellulitis, with culture positive for both streptococcus pyogenes and methicillin-resistant staphylococcus aureus. 4. Chronic kidney disease stage 4, stable. 5. Diabetes mellitus. Will continue to titrate current insulin needs. 6. Status post right below-knee amputation. 7. Mild fluid overload. The patient has been started on her diuretic therapy. In general, Ms. French continues to be fairly stable. We have gone up on her insulin this morning. We have also encouraged her to keep the left lower extremity a little bit elevated to help with venous drain. It seems like she has an underlying venous insufficiency, which has been complicated with superimposed cellulitis. The patient is being seen by Infectious Disease and Surgery, and we do appreciate their valuable input. cc: Deni Reyes MD
[2019-02-20] MEDS: NORCO-5 PO PRN (21:19)
[2019-02-20] MEDS: DESYREL PO SCH (21:22)
[2019-02-20] MEDS: CRESTOR PO SCH (21:22)
[2019-02-21] MEDS: HUMALOG SUBQ SCH ×7 (06:16→21:30)
[2019-02-21] MEDS: PRILOSEC PO SCH (06:17)
[2019-02-21 06:19] LABS: CALCIUM 8.6 mg/dL (8.8-10.2); CREATININE 1.8 mg/dL (0.5-0.9); POTASSIUM 3.8 mmol/L (3.5-5.1)
[2019-02-21 06:23] LABS: HEMATOCRIT 32.4 % (37.0-47.0); HEMOGLOBIN 10.3 g/dL (12.0-16.0); MCH 29.6 PG (27-31); MCHC 31.8 g/dL (33-37); MCV 93.1 FL (81-99); MPV 11.3 FL (7.4-10.4); RBC 3.48 XMIL (4.2-5.4); RDW 12.7 % (11.5-14.5); WBC 9.39 X1000 (4.8-10.8)
--- NOTE | 2019-02-21 06:55 | INFECTIOUS DISEASE PROGRESS NO ---
DATE: 02/21/2019 PRESENT ILLNESS: The patient has a group A streptococcal cellulitis and associated bacteremia. She also has, in her left leg, methicillin-resistant Staphylococcus aureus. MEDICATIONS: The patient currently is on IV Rocephin and p.o. doxycycline. PHYSICAL EXAMINATION: Vital Signs: Temperature is 98.3 degrees, pulse 66, respirations 19, blood pressure 135/60. General: This is a morbidly obese, ill-appearing, middle-aged female. She is lethargic this morning. Head, Eyes, Ears, Nose, and Throat: No drainage is noted from the nose or ears. I did not see any white patches in her mouth. Neck: No meningismus. The patient has a right-sided internal jugular venous catheter in place. The catheter site is not erythematous or tender. Lungs: Clear to auscultation. Cardiovascular: Heart rate is regular. Abdomen: Soft and nontender. Extremities: The left leg remains erythematous and edematous. Overall, it is less swollen than when she came in but the erythema is still present and it extends not only from the lower part of the leg but up into the proximal part of the leg. Neurologic: The patient is lethargic today but she is arousable, and the patient can talk and move her extremities. LAB AND X-RAY: There is no new lab or radiographic study for today. ASSESSMENT AND PLAN: The patient has a streptococcal bacteremia and leg infection. The leg also is infected with methicillin-resistant Staphylococcus aureus. My plan is to continue the patient on Rocephin and doxycycline. I think, because of the patient's morbid obesity and marked leg edema, it is going to take a longer period of time for the infection to get better. The patient's foot of the bed is elevated continuously by the manual gatch. COMORBIDITIES: The patient is morbidly obese. She has chronic left leg edema, diabetes mellitus, neuropathy, and fibromyalgia. cc: Tyler Freedman MD MTDD
[2019-02-21] MEDS: ROCEPHIN 2 GM in NS 50 ML IV SCH ×2 (09:29→19:27)
[2019-02-21] MEDS: THERA M PLUS PO SCH (09:29)
[2019-02-21] MEDS: DOXYCYCLINE PO SCH ×2 (09:29→21:30)
[2019-02-21] MEDS: LYRICA PO SCH (09:30)
[2019-02-21] MEDS: ZYRTEC PO SCH (09:30)
[2019-02-21] MEDS: LASIX PO SCH ×2 (09:30→21:30)
[2019-02-21] MEDS: LANTUS INSULIN SUBQ SCH (09:30)
[2019-02-21] MEDS: CARDIZEM CD PO SCH (09:30)
--- NOTE | 2019-02-21 10:49 | PROGRESS NOTE ---
DATE: 02/21/2019 Ms Niharika French continues to have cellulitis involving her left lower extremity. It involves her left leg in the medial aspect of her left thigh. She has cellulitis and swelling of that leg and also tenderness to palpation. On close examination of the leg, I could not elicit any area of abscess. Clinically, she says she feels better with less pain involving the leg. I think there has been improvement of the cellulitis involving the left leg but she still has about the same amount of cellulitis by clinical exam involving the medial left thigh. She is receiving IV antibiotics and elevation of the leg, and we will continue to follow her. She is afebrile. Her white blood cell count is normal. cc: Divya Crawford MD
[2019-02-21] MEDS: HEPARIN SUBQ SCH ×2 (12:13→23:05)
--- NOTE | 2019-02-21 12:15 | PROGRESS NOTE ---
DATE: 02/21/2019 SUBJECTIVE: This morning Ms. French refers to be feeling fairly okay. No new complaints. She still had some swelling in the left lower extremity with pain. OBJECTIVE: Vital Signs: Blood pressure is 145/58, pulse of 62, respirations 15, and temperature 97.8 degrees. General: Ms. French is a 63-year-old female. She is in bed morbidly obese with a BMI of 55.2. She is not in any distress. Mucosa is pink and moist. Anicteric. Acyanotic. Neck: Supple. Chest: Good air entry bilaterally. No crepitations. No rhonchi. Cardiovascular: Regular rate and rhythm. No murmurs, no rubs, no gallops. GI: Abdomen is soft. Distended but nontender. There is fluid in the lateral aspect of the abdominal wall. Extremities: There is a right BKA. The left has some erythematous changes on the foot extending in the medial aspect into the upper thigh. STABLE HELPER: Patient is awake, alert, and oriented. LABORATORY DATA: WBC is 9.39, hemoglobin is 10.3, and platelet count of 156,000. Chemistry is also reviewed. Creatinine of 1.8. The patient's baseline glucose was 265. ASSESSMENT: 1. Streptococcal pyogenes bacteremia due to skin and soft tissue infection. 2. Left lower extremity cellulitis with culture positive for strep pyogenes and MRSA. 3. CKD stage 4. 4. Diabetes mellitus. The patient is on insulin. 5. Mild fluid overload. We will continue with diuretic therapy. 6. Status post right below-knee amputation many years ago. PLAN: Ms. French continues to be on ceftriaxone and doxycycline. ID is on board. Surgery is also on board. No new changes to her current medications. cc: Deni Reyes MD
[2019-02-21] MEDS: DESYREL PO SCH (21:30)
[2019-02-21] MEDS: CRESTOR PO SCH (21:30)
[2019-02-22] MEDS: NORCO-5 PO PRN (00:05)
[2019-02-22] MEDS: LYRICA PO SCH ×3 (00:05→20:35)
[2019-02-22] MEDS: PRILOSEC PO SCH (06:28)
[2019-02-22] MEDS: HUMALOG SUBQ SCH ×7 (06:28→20:36)
[2019-02-22 07:24] LABS: BASO# 0.04 X1000 (0.0-0.2); BASO% 0.4 % (0.0-0.8); EOS# 0.58 X1000 (0.0-0.7); EOS% 5.3 % (0.0-10.0); HEMATOCRIT 32.4 % (37.0-47.0); HEMOGLOBIN 10.2 g/dL (12.0-16.0); LYMPH# 2.44 X1000 (1.2-3.4); LYMPH% 22.2 % (20.5-51.1); MCH 29.4 PG (27-31); MCHC 31.5 g/dL (33-37); MCV 93.4 FL (81-99); MONO# 0.78 X1000 (0.11-0.59); MONO% 7.1 % (1.7-9.3); MPV 11.1 FL (7.4-10.4); NEUT# 7.16 X1000 (1.4-6.5); PLT 183 X1000 (130-400); RBC 3.47 XMIL (4.2-5.4); RDW 12.8 % (11.5-14.5)
[2019-02-22 08:10] LABS: ALBUMIN 2.4 g/dL (3.5-5.0); CALCIUM 8.9 mg/dL (8.8-10.2); CREATININE 1.8 mg/dL (0.5-0.9); PHOSPHORUS 4.2 mg/dL (2.7-4.5); POTASSIUM 3.5 mmol/L (3.5-5.1)
[2019-02-22] MEDS: LANTUS INSULIN SUBQ SCH (08:20)
--- NOTE | 2019-02-22 08:20 | PROGRESS NOTE ---
DATE: 02/22/2019 SUBJECTIVE: Ms. Niharika French continues to have cellulitis involving her left lower extremity. She is on IV antibiotics. I do feel that the cellulitis is improving involving her left leg. I think the swelling and pain involving the cellulitis medial aspect of the left thigh has also improved with her IV antibiotics and elevation. On clinical exam, there is no evidence of abscess in the soft tissues, left lower extremity. I think that her current treatment is what she needs, IV antibiotics and elevation. She has a Herring catheter tube in place. She is drowsy this morning, but she is tolerating her diet. We will continue to follow. cc: Divya Crawford MD
[2019-02-22] MEDS: ROCEPHIN 2 GM in NS 50 ML IV SCH ×2 (08:24→20:36)
[2019-02-22] MEDS: LASIX PO SCH ×2 (08:25→20:36)
[2019-02-22] MEDS: DOXYCYCLINE PO SCH ×2 (08:25→20:36)
[2019-02-22] MEDS: CARDIZEM CD PO SCH (08:25)
[2019-02-22] MEDS: THERA M PLUS PO SCH (08:25)
[2019-02-22] MEDS: ZYRTEC PO SCH (08:25)
--- NOTE | 2019-02-22 08:54 | PROGRESS NOTE ---
DATE: 02/22/2019 SUBJECTIVE: This morning, Ms. French refers to be feeling a lot better. No new complaints. Still has pains in her left leg. OBJECTIVE: Vital Signs: Blood pressure is 127/63, pulse of 65, respirations are 18, temperature is 97.6 degrees, the patient is saturating 99% on room air. General Examination: Ms. French is a 63-year-old, morbidly obese, female. BMI is 55.2. She is in bed. No distress. HEENT: Mucosa is pink and moist. Anicteric. Acyanotic. Neck: Supple. Chest: Good air entry bilaterally. There were no crepitations, no rhonchi. Cardiovascular: Regular rate and rhythm. No murmurs, no rubs, no gallops. GI: Abdomen is soft. Distended but nontender. Bowel sounds are present. There is edema infiltration to the lateral aspect of the abdominal wall. Extremities: There is a right BKA with a clean stump. The left has the cellulitis changes which have not changed a whole lot except some wrinkling which is indicative of slow improvement. Laboratory Data: WBC is 11.00, hemoglobin is 10.2, platelet count of 183,000. Chemistry is also reviewed. Creatinine at 1.8, glucose is 225. ASSESSMENT: 1. Streptococcal pyogenes bacteremia secondary to skin and soft tissue infection. The patient is on ceftriaxone. Repeat blood cultures have been negative. 2. Left lower extremity cellulitis with culture positive for Streptococcus pyogenes and methicillin-resistant Staphylococcus aureus. The patient is on ideal antimicrobial coverage. Infectious disease is on board. 3. Chronic kidney disease stage 4, stable. 4. Diabetes mellitus. The patient is on an insulin regimen. We will continue to titrate for adequate glucose control. 5. Mild fluid overload. We will continue with the diuretic therapy. 6. Status post below knee amputation on the right limb, noted. PLAN: In general, Ms. French seems to be doing well. Repeat blood cultures have been negative. She is on antimicrobial coverage. ID and surgery are on board. We are going to continue with her current management for now. cc: Deni Reyes MD MTDD
[2019-02-22] MEDS: HEPARIN SUBQ SCH (12:48)
--- NOTE | 2019-02-22 13:29 | INFECTIOUS DISEASE PROGRESS NO ---
DATE: 02/22/2019 PRESENT ILLNESS: The patient has a group A strep, left leg cellulitis with an associated bacteremia. She also has in her left leg methicillin-resistant Staph aureus. MEDICATIONS: The patient is on a combination of IV Rocephin and p.o. doxycycline. PHYSICAL EXAMINATION: Vital Signs: Temperature is 98.1 degrees, pulse 62, respirations 18, blood pressure 143/56. General: This is a morbidly obese, ill-appearing, middle-aged female. She is alert today and talkative. Head/eyes/ears/nose/throat: She can hear my spoken words and see near objects. She does not have any white coating on her tongue. Neck: No neck pain with movement of her neck or of her head. The patient has a right-sided internal jugular venous catheter in place, the site is not erythematous or purulent. Lungs: Distant breath sounds but I did not hear any rales. Cardiovascular: Heart tones also were distant but the heart rate was regular. Abdomen: Soft and nontender. Extremities: The patient's left leg remains edematous. The erythema is fading a little bit. Neurologic: The patient is awake now. She can move her extremities and there is no tremor present. LAB AND X-RAY: The creatinine is 1.8, GFR is 28. [place] [address], hemoglobin 10.2, and platelet count 183,000. ASSESSMENT AND PLAN: Patient has streptococcal bacteremia and leg cellulitis. Also, the leg is infected with methicillin-resistant Staph aureus. My plan is to continue the current antibiotics consisting of Rocephin and p.o. doxycycline. COMORBIDITIES: The patient is morbidly obese. She has chronic left leg edema. She also is a diabetic and she has neuropathy and fibromyalgia. cc: Tyler Freedman MD
[2019-02-22] MEDS: TYLENOL PO PRN (16:31)
[2019-02-22] MEDS: DESYREL PO SCH (20:36)
[2019-02-22] MEDS: CRESTOR PO SCH (20:36)
[2019-02-23] MEDS: HEPARIN SUBQ SCH ×3 (01:40→23:38)
[2019-02-23] MEDS: PRILOSEC PO SCH (06:19)
[2019-02-23] MEDS: HUMALOG SUBQ SCH ×6 (06:19→21:45)
--- NOTE | 2019-02-23 08:36 | PROGRESS NOTE ---
DATE: 02/23/2019 SUBJECTIVE: Ms Niharika French continues to have cellulitis involving her left lower extremity. Clinically, it seems to be improving slowly. ASSESSMENT AND PLAN: On exam, I do not feel any area of purulence or soft tissue abscess that needs draining, and will continue elevation and IV antibiotics. cc: Divya Crawford MD
[2019-02-23] MEDS: ZYRTEC PO SCH (08:48)
[2019-02-23] MEDS: LYRICA PO SCH ×2 (08:48→21:45)
[2019-02-23] MEDS: THERA M PLUS PO SCH (08:49)
[2019-02-23] MEDS: LASIX PO SCH ×2 (08:49→21:45)
[2019-02-23] MEDS: CARDIZEM CD PO SCH (08:49)
[2019-02-23] MEDS: DOXYCYCLINE PO SCH ×2 (08:49→21:45)
[2019-02-23] MEDS: ROCEPHIN 2 GM in NS 50 ML IV SCH ×2 (08:50→21:44)
[2019-02-23] MEDS: LANTUS INSULIN SUBQ SCH (08:51)
--- NOTE | 2019-02-23 10:20 | PROGRESS NOTE ---
DATE: 02/23/2019 SUBJECTIVE: This morning Ms. French refers to be doing okay. Denies any new complaints. OBJECTIVE: Vital Signs: Blood pressure is 161/56, pulse of 60, respirations 16, and temperature 98.1 degrees. Patient is saturating 95%. General: Ms. French is a 63-year-old female. She is in bed no distress mucosa is pink and moist. Anicteric. Acyanotic. Neck: Supple. There is an IJ in the right side. Chest: Clear to auscultation. Cardiovascular: Regular rate and rhythm. Abdomen: Soft, distended, but nontender. There is fluid on the lateral aspect of the abdominal wall. Extremities: There is a right BKA with clean stump. The left has cellulitis which is improving. 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 LABORATORY DATA: Glucose is still minimally elevated. ASSESSMENT: 1. Streptococcal pyogenes bacteremia secondary to skin and soft tissue infection. Repeat blood cultures have been negative. Patient is on ceftriaxone. 2. Left lower extremity cellulitis with culture positive for strep pyogenes and MRSA. The patient is on antimicrobial therapy. 3. CKD stage 4, stable. 4. Diabetes mellitus. Patient is on insulin regimen. We will continue to titrate for better glycemic control. 5. Mild fluid overload. Patient is on diuretic therapy. 6. Status post right below knee amputation a couple years back. PLAN: In general, I think Ms. French is doing a lot better. She does have a central line which was placed seen since admission so it has been there for 7 days. We are going to get her PICC line and remove this, and remove the central line. Ms. French's lower extremity is getting better, but I think she is going to be needing a longer course of antimicrobial. ID and Surgery are on board. cc: Deni Reyes MD
[2019-02-23 10:31] LABS: INR 0.95; PROTIME 13.4 Seconds (11.0-16.0)
--- NOTE | 2019-02-23 14:14 | INFECTIOUS DISEASE PROGRESS NO ---
DATE: 02/23/2019 PRESENT ILLNESS: The patient has a group A streptococcal leg cellulitis with an associated bacteremia. Also, the patient's left leg is infected with methicillin-resistant Staph aureus also. MEDICATIONS: This is the third day of treatment with IV Rocephin and p.o. doxycycline. Day 1 was the first day that the patient's blood cultures reverted to negative. PHYSICAL EXAMINATION: Vital Signs: Temperature is 98.4 degrees, pulse 81, respirations 18, blood pressure is 164/96. General: This is a morbidly obese, ill-appearing, middle-aged female. She is alert today and she talks in a coherent fashion. Neck: The patient has a right-sided internal jugular venous catheter in place. The site is not purulent or swollen. Lungs: Had distant breath sounds. I did not hear any rales. Cardiovascular: Also had distant heart tones, but it seemed to me that her heart rate was regular. Extremities: The patient's left leg remains edematous and erythematous. 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 Neurologic: The patient is alert. She can move her extremities. There is no tremor. LAB AND X-RAY STUDIES: No new lab. The repeat blood cultures are sterile. There is no new radiographic study. ASSESSMENT AND PLAN: The patient has a group A strep leg cellulitis with an associated bacteremia. Also, methicillin-resistant Staphylococcus aureus is infecting the leg as well. My plan is to continue with Rocephin and doxycycline. COMORBIDITIES: The patient is morbidly obese. She has chronic left leg edema. She also is a diabetic and she has neuropathy and fibromyalgia. cc: Tyler Freedman MD
[2019-02-23] MEDS: DESYREL PO SCH (21:45)
[2019-02-23] MEDS: CRESTOR PO SCH (21:45)
[2019-02-23] MEDS: NORCO-5 PO PRN (22:44)
[2019-02-24] MEDS: HUMALOG SUBQ SCH ×5 (06:32→20:35)
[2019-02-24] MEDS: PRILOSEC PO SCH (06:32)
[2019-02-24 07:40] LABS: BASO# 0.07 X1000 (0.0-0.2); BASO% 0.6 % (0.0-0.8); EOS# 0.55 X1000 (0.0-0.7); EOS% 4.9 % (0.0-10.0); HEMATOCRIT 38.2 % (37.0-47.0); IMM GRAN# 0.46 X1000 (0.0-0.04); IMM GRAN% 4.1 % (0.0-0.5); LYMPH# 2.95 X1000 (1.2-3.4); LYMPH% 26.2 % (20.5-51.1); MCH 28.9 PG (27-31); MCHC 31.4 g/dL (33-37); MONO# 0.84 X1000 (0.11-0.59); MONO% 7.5 % (1.7-9.3); MPV 10.6 FL (7.4-10.4); NEUT% 56.7 % (42.2-75.2); PLT 226 X1000 (130-400); RBC 4.15 XMIL (4.2-5.4); RDW 12.7 % (11.5-14.5); WBC 11.27 X1000 (4.8-10.8)
[2019-02-24 08:08] LABS: ALBUMIN 2.5 g/dL (3.5-5.0); CALCIUM 9.4 mg/dL (8.8-10.2); CREATININE 1.6 mg/dL (0.5-0.9); PHOSPHORUS 5.3 mg/dL (2.7-4.5); POTASSIUM 3.9 mmol/L (3.5-5.1)
[2019-02-24] MEDS: ROCEPHIN 2 GM in NS 50 ML IV SCH ×2 (08:17→20:35)
[2019-02-24] MEDS: DOXYCYCLINE PO SCH ×2 (08:18→20:36)
[2019-02-24] MEDS: CARDIZEM CD PO SCH (08:18)
[2019-02-24] MEDS: LASIX PO SCH ×2 (08:18→20:36)
[2019-02-24] MEDS: ZYRTEC PO SCH (08:18)
[2019-02-24] MEDS: LYRICA PO SCH ×2 (08:18→20:35)
[2019-02-24] MEDS: THERA M PLUS PO SCH (08:18)
[2019-02-24] MEDS ORDERED: LANTUS INSULIN SUBQ SCH (09:00)
--- NOTE | 2019-02-24 13:06 | PROGRESS NOTE ---
DATE: 02/24/2019 SUBJECTIVE: This morning Ms. French refers to be doing well. No new complaints. She did refer that at home. She normally uses Novolin R and Novolin N for adequate blood glucose control and that she follows up with Dr. Dupree, wirer in [place]. OBJECTIVE: Vital signs: Blood pressure is 156/78, pulse of 71, respirations 21, temperature 97.9 degrees. Patient was saturating 100% on nasal cannula 2 L. General: Ms. French is a 63-year-old obese female. She is in bed. BMI is 55.2. She is not in any distress. Mucosa is pink and moist. Anicteric. Acyanotic. Neck: Supple. Chest: Good air entry bilateral. There are no crepitations, no rhonchi. Cardiovascular: Regular rate and rhythm. No murmurs, no rubs, no gallops. GI: Abdomen is soft, minimally distended, fluid on the lateral aspect of the abdominal wall but it is improving. Extremities: There is a right BKA. The left lower extremity cellulitis seems to be improving. MANAGEMENT TRAINEE MARKETING: Patient is awake, alert, and oriented. LABORATORY DATA: WBC is 11.27. Chemistry is also reviewed. Creatinine is down to 1.6. Glucose was 109. ASSESSMENT: 1. Streptococcal pyogenes bacteremia secondary to skin and soft tissue infection. Repeat blood cultures have been negative. Patient is on ceftriaxone. 2. Left lower extremity cellulitis with culture positive for strep pyogenes and MRSA. The patient is on antimicrobial therapy. 3. CKD stage IV, stable. 4. Diabetes mellitus. We will continue with insulin regimen. I have switched the patient to her home regimen. 5. Mild fluid overload. The patient is on diuretic therapy. This seems to be improving. 6. Status post right BKA, old. So today we are going to discontinue the Herring catheter, get the patient up in chair, encourage physical therapy and continue with the current antimicrobial therapy. We plan to discharge Ms. French hopefully by Tuesday. cc: Deni Reyes MD MTDD
--- NOTE | 2019-02-24 13:52 | GENERAL SURGERY PROGRESS NOTE ---
DATE: 02/24/2019 Ms. French feels better. Her leg is less swollen, less erythematous and less warm. She continues to improve. White count today is 11,300. Continue with antibiotics. cc: Rancho Morris MD
[2019-02-24] MEDS: HEPARIN SUBQ SCH ×2 (14:36→23:23)
[2019-02-24] MEDS: CYMBALTA PO SCH ×2 (17:32→20:46)
[2019-02-24] MEDS: HUMULIN R SUBQ SCH (20:34)
[2019-02-24] MEDS: CRESTOR PO SCH (20:35)
[2019-02-24] MEDS: NORCO-5 PO PRN (20:35)
[2019-02-24] MEDS: DESYREL PO SCH (20:36)
[2019-02-24] MEDS ORDERED: HUMULIN N SUBQ SCH (21:00)
[2019-02-25] MEDS: HUMALOG SUBQ SCH ×2 (06:04→11:04)
[2019-02-25] MEDS: PRILOSEC PO SCH (06:39)
[2019-02-25] MEDS: LYRICA PO SCH ×2 (09:21→21:18)
[2019-02-25] MEDS: CYMBALTA PO SCH ×2 (09:22→21:18)
[2019-02-25] MEDS: ROCEPHIN 2 GM in NS 50 ML IV SCH ×2 (09:22→21:18)
[2019-02-25] MEDS: THERA M PLUS PO SCH (09:22)
[2019-02-25] MEDS: CARDIZEM CD PO SCH (09:22)
[2019-02-25] MEDS: LASIX PO SCH ×2 (09:23→21:18)
[2019-02-25] MEDS: HUMULIN R SUBQ SCH ×5 (09:23→22:35)
[2019-02-25] MEDS: HUMULIN N SUBQ SCH ×2 (09:23→21:24)
[2019-02-25] MEDS: DOXYCYCLINE PO SCH ×2 (09:23→21:27)
[2019-02-25] MEDS: ZYRTEC PO SCH (09:24)
[2019-02-25] MEDS: HEPARIN SUBQ SCH ×2 (12:42→23:25)
--- NOTE | 2019-02-25 15:10 | PROGRESS NOTE ---
DATE: 02/25/2019 SUBJECTIVE: Today, Ms. French refers to be doing well. No new complaints. She was sitting up in a chair. OBJECTIVE: Vital signs: Blood pressure is 161/64, pulse of 66, respirations 16, temperature 98.1 degrees. The patient is saturating 99% on room air. General: Ms. French is 63-year-old female. She was sitting in a chair in no distress. HEENT: Mucosa is pink and moist. Anicteric. Acyanotic. Neck: Supple. Chest: Clear to auscultation. No crepitations. No rhonchi. Cardiovascular: Regular rate and rhythm. Abdomen: Soft, nontender. Bowel sounds present. Extremities: No pedal edema. There is a right BKA. The left lower extremity still has some swelling and erythematous changes but is looking a lot better than it did before. CITY DISPATCHER: Patient is awake, alert, and very oriented. LABORATORY DATA: Glucose is 111 this morning. ASSESSMENT: 1. Streptococcal pyogenes bacteremia originating from skin and soft tissue infection. Subsequent blood cultures have been negative. Patient is currently on ceftriaxone. 2. Left lower extremity cellulitis with culture positive for Streptococcus pyogenes and methicillin-resistant Staphylococcus aureus. The patient is on adequate antimicrobial coverage. 3. Chronic kidney disease stage 4 noted. 4. Diabetes mellitus type 2. Patient is on insulin regimen. 5. Mild fluid overload. We will continue with the diuretic therapy. 6. Status post right below-knee amputation is old. The patient uses prosthetic C limb. PLAN: So in general I think Ms. French is doing well. I think she is reaching the maximum benefit she would yield in an acute hospitalization. We will start planning for her discharge. We are going to wait on ID to suggest what antimicrobial she will be going home on. Unsure if we can change to something oral. I think Ms. French can potentially be discharged tomorrow. cc: Deni Reyes MD
[2019-02-25] MEDS: NORCO-5 PO PRN (16:16)
[2019-02-25] MEDS: DESYREL PO SCH (21:18)
[2019-02-25] MEDS: CRESTOR PO SCH (21:18)
[2019-02-26] MEDS: HUMULIN R SUBQ SCH ×3 (06:04→12:58)
[2019-02-26] MEDS: PRILOSEC PO SCH (06:27)
[2019-02-26 07:11] LABS: BASO# 0.05 X1000 (0.0-0.2); BASO% 0.6 % (0.0-0.8); EOS# 0.43 X1000 (0.0-0.7); EOS% 5.2 % (0.0-10.0); HEMATOCRIT 33.3 % (37.0-47.0); HEMOGLOBIN 10.4 g/dL (12.0-16.0); IMM GRAN# 0.14 X1000 (0.0-0.04); IMM GRAN% 1.7 % (0.0-0.5); LYMPH# 1.94 X1000 (1.2-3.4); LYMPH% 23.3 % (20.5-51.1); MCH 28.4 PG (27-31); MCHC 31.2 g/dL (33-37); MONO# 0.49 X1000 (0.11-0.59); MONO% 5.9 % (1.7-9.3); MPV 10.5 FL (7.4-10.4); NEUT# 5.29 X1000 (1.4-6.5); NEUT% 63.3 % (42.2-75.2); PLT 243 X1000 (130-400); RBC 3.66 XMIL (4.2-5.4); RDW 12.7 % (11.5-14.5); WBC 8.34 X1000 (4.8-10.8)
[2019-02-26 07:27] VITALS: BP 135/50
[2019-02-26 07:56] LABS: ALBUMIN 2.4 g/dL (3.5-5.0); CALCIUM 8.7 mg/dL (8.8-10.2); CREATININE 1.5 mg/dL (0.5-0.9); PHOSPHORUS 4.8 mg/dL (2.7-4.5); POTASSIUM 3.7 mmol/L (3.5-5.1)
[2019-02-26] MEDS ORDERED: NS 250 ML ONE (08:35)
[2019-02-26] MEDS: HUMULIN N SUBQ SCH (09:23)
[2019-02-26] MEDS: ROCEPHIN 2 GM in NS 50 ML IV SCH (09:23)
[2019-02-26] MEDS: THERA M PLUS PO SCH (09:24)
[2019-02-26] MEDS: CYMBALTA PO SCH (09:24)
[2019-02-26] MEDS: LASIX PO SCH (09:24)
[2019-02-26] MEDS: DOXYCYCLINE PO SCH (09:24)
[2019-02-26] MEDS: LYRICA PO SCH (09:24)
[2019-02-26] MEDS: CARDIZEM CD PO SCH (09:24)
[2019-02-26] MEDS: ZYRTEC PO SCH (09:25)
[2019-02-26] MEDS: NORCO-5 PO PRN (09:35)
[2019-02-26] MEDS: HEPARIN SUBQ SCH (12:57)
--- NOTE | 2019-02-26 15:30 | INFECTIOUS DISEASE PROGRESS NO ---
DATE: 02/26/2019 PRESENT ILLNESS: The patient has group a streptococcal leg cellulitis with an associated bacteremia. She also has on her left leg a methicillin-resistant Staphylococcus aureus infection. MEDICATIONS: This is the 6th day of treatment with IV Rocephin and p.o. doxycycline. PHYSICAL EXAMINATION: Vital Signs: Temperature 97.7 degrees, pulse 67, respirations 18, blood pressure 135/50. General: This is a morbidly obese, ill-appearing, middle-aged female. She is in no acute distress. Head, Eyes, Ears, Nose, and Throat: She can hear my spoken words and see near objects. She does not have any white patches in her mouth. Neck: She does not have any neck pain when she moves her head or neck. The patient has an internal jugular venous catheter in place. The site is not erythematous or swollen. Lungs: Clear to auscultation. Cardiovascular: Regular heart rate. Abdomen: Soft and nontender. Extremities: The if patient has a PICC in her right arm. The site is not erythematous or swollen. The patient's left leg is erythematous and swollen, but not quite as swollen and not quite as intensely red as it what was earlier. Neurologic: The patient is alert. She can move her extremities. There is no tremor. DIAGNOSTIC STUDIES: CBC shows a white count of 8340, hemoglobin 10.7, platelet count 243,000. Creatinine is 1.5, GFR is 35. ASSESSMENT AND PLAN: 1. The patient has a streptococcal leg cellulitis with an associated bacteremia. 2. She also has Staphylococcus aureus infection of the leg. My plan is to continue Rocephin 2 g IV every 12 hours and doxycycline 100 mg p.o. every 12 hours at home. She is being discharged today. I told the patient to elevate her left leg as much as possible and for long as possible. I have requested the patient come to my office in 1 week, and then we will continue to see how the leg is doing. It may well be that she will need another week of antibiotics after the office visit. I electronically sent a prescription for doxycycline 100 mg p.o. every 12 hours for 1 week and put a refill. I put a consult in for Social Service to consult [facility] for Rocephin 2 g IV every 12 hours for definitely 1 week and probably for 2 weeks. I have requested that the patient come to my office in 1 week. COMORBIDITIES: 1. Patient is obese. 2. She has chronic left leg edema. 3. She also is a diabetic and she has neuropathy. 4. Fibromyalgia. cc: Tyler Freedman MD MTDD
--- NOTE | 2019-02-28 10:24 | DISCHARGE SUMMARY ---
ADMISSION DATE: 02/16/2019 DISCHARGE DATE: 02/26/2019 DISCHARGE DISPOSITION: Home with home health. FOLLOW-UP: 1. Dr. Stephens. 2. Dr. Freedman. 3. Dr. Crawford. 4. [facility] and [facility]. CONSULTATIONS DURING THIS ADMISSION: 1. Surgery was consulted. Patient was seen by Dr. Crawford and followed up by Dr. Morris. 2. ID was consulted. Patient was seen by Dr. Freedman. INVASIVE PROCEDURES DONE DURING THIS ADMISSION: None. IMAGING STUDIES OF SIGNIFICANCE: 1. A chest x-ray did show severely low lung volumes, no acute disease. 2. A CT scan of the head showed no acute changes. 3. Lower extremity x-ray showed nonspecific findings. 4. Abdominal ultrasound showed no definite evidence of acute disease. 5. Extremity venous studies showed cellulitis, left lower extremity, but no evidence of thrombus. ADMISSION DIAGNOSES: 1. Sepsis. 2. Cellulitis. 3. Possible pneumonia. 4. Hypertension. 5. Acute on chronic renal failure. DIAGNOSES AT THE TIME OF DISCHARGE: 1. Streptococcal pyogenes bacteremia originating from skin and soft tissue infection. 2. Left lower extremity cellulitis with culture positive for Streptococcal pyogenes and methicillin-resistant Staphylococcus aureus. 3. Chronic kidney disease stage IV. 4. Diabetes mellitus type 2. 5. My fluid overload. 6. Status post right below-knee amputation, which is old. DISCHARGE MEDICATIONS: 1. Trazodone 100 mg p.o. at bedtime. 2. Duloxetine 60 mg b.i.d. 3. Crestor 20 mg p.o. daily. 4. Omeprazole 40 mg p.o. daily. 5. Diltiazem 120 p.o. q.a.m. 6. Lyrica 100 mg b.i.d. 7. Hydroxyzine 25 mg b.i.d. 8. Indapamide 2.5 p.o. daily. 9. Insulin regular 18 units subcutaneous b.i.d. 10. NPH insulin 45 units b.i.d. 11. Lasix 40 mg b.i.d. 12. Doxycycline 100 mg p.o. at bedtime. 13. Rocephin 1 g IV daily. PRESENTING COMPLAINT: Generalized weakness, not feeling well, cough and fever. HISTORY OF PRESENTING COMPLAINT: Ms. French, a 63-year-old female who presented to the emergency department because of generalized weakness and some confusion. Patient was found to have elevated white cell count and swollen left lower extremity. There was concern for sepsis. She was admitted to the medical floor for management. HOSPITAL COURSE: Ms French was started on broad-spectrum IV antibiotics, was adequately fluid resuscitated. During the hospital course, Surgery was consulted to evaluate for possible deep tissue infection, including possible abscess which was ruled out. ID was also consulted because of blood cultures being positive. During the hospital course, culture came back positive for Strep pyogenes, which was both in the leg and in the blood, and then an MRSA in the wound. Antibiotics was tailored accordingly. Ms. French continues to show remarkable clinical improvement during the hospital course. During the hospital course, her glucose was on the higher end, so changes were made to her regimen, and her NPH was increased. A repeat blood culture came back negative for 5 days, so a PICC line consult was placed and patient got a PICC line and was successfully discharged on Rocephin and also p.o. doxycycline. She will follow up with Dr. Freedman, as well as with Dr. Thacker. At the time of discharge her vitals: Blood pressure was 135/50, pulse of 67, respirations 18, temperature 97.7 degrees. The patient was saturating 99% on room air. She was stable for discharge. She will follow up with 1. Dr. Freedman. 2. Dr. Thacker. All the discharge instructions have been discussed with her and she voiced understanding. TIME SPENT FOR DISCHARGE: 35 minutes. cc: MD Debbi Sommers MD Lynn R. Buckner, MD Leroy F. Harris, MD
== END 2019-02-26 15:51 | disposition home health service (06) | DRG 872 ==
LOC: SUPCPDRO → ED 14:52 → SUATTDRO 23:14 → 3S 23:14 → 3N 02-22 02:41
PROVIDERS: ATTEND Internal Medicine
CPT/HCPCS: 36569; 51702; 70450; 71010; 71045; 73590; 76700; 80048; 80053; 80069; 80101; 80301; 80307; 80324; 80345; 80346; 80353; 80358; 80361; 80365; 81001; 82948; 83605; 83992; 84443; 84484; 85025; 85027; 85610; 85730; 87040; 87070; 87077; 87186; 93005; 93971; 96361; 96365; 96366; 96372; 97162; 97530; 99285; A9270; G0431; G0434; G0479; G0480; J0690; J0696; J0878; J1200; J1644; J1815; J2020; J2270; J2765; J3370; J7030; J7050; S0073; XXXXX